=== PATIENT | male | born 1990 | race Caucasian/White ===

== ENCOUNTER 2017-10-04 03:35 | Inpatient (IN) | END 2017-10-07 17:34 | disposition home or self-care (01) | DRG 304 ==

== ENCOUNTER 2017-10-10 13:37 | Inpatient (IN) | END 2017-10-13 10:10 | disposition left against medical advice (07) | DRG 313 ==

== ENCOUNTER 2017-11-14 15:40 | Emergency (ER) | END 2017-11-14 20:09 ==

== ENCOUNTER 2017-11-21 21:40 | Emergency (ER) | END 2017-11-22 05:12 | disposition home or self-care (01) ==

== ENCOUNTER 2017-12-05 19:51 | Inpatient (IN) | END 2017-12-11 18:51 | disposition home or self-care (01) | DRG 304 ==

== ENCOUNTER 2018-02-09 16:12 | Emergency (ER) | END 2018-02-09 20:49 | disposition home or self-care (01) ==

== ENCOUNTER 2018-02-13 20:31 | Inpatient (IN) | END 2018-02-16 19:00 | disposition home or self-care (01) | DRG 690 ==